=== PATIENT | male | born 1955 | race Caucasian/White ===

== ENCOUNTER 2018-05-26 14:21 | Inpatient (IN) | payer OTHER ==
[~2018-05-26] VITALS: Ht 177.8 cm; Wt 100.9 kg
[2018-05-26 14:29] VITALS: Ht 177.8 cm; Wt 100.9 kg
[2018-05-26 15:06] LABS: BASOPHIL % 0.1 % (0-2); PLATELET COUNT 275 x10^3mcL (130-400)
[2018-05-26 15:07] LABS: RED CELL DISTRIBUTION WIDTH 16.2 % (11.5-14.5)
[2018-05-26 15:32] LABS: ALBUMIN 4.3 g/dL (3.4-5.0); ALKALINE PHOSPHATASE 75 U/L (46-116); ALT/SGPT 25 U/L (16-63); AST/SGOT 31 U/L (15-37); BILIRUBIN TOTAL 0.3 mg/dL (0.20-1.00); CALCIUM 9.3 mg/dL (8.5-10.1); CHLORIDE SERUM 105 mmol/L (98-107); CREATININE SERUM 0.8 mg/dL (0.7-1.3); GFR1 > 60 mL/min; GLUCOSE SERUM 117 mg/dL (74-106); SODIUM SERUM 140 mmol/L (136-145); TOTAL PROTEIN, SERUM 7.9 g/dL (6.4-8.2)
[2018-05-26 15:35] LABS: POTASSIUM SERUM 2.8 mmol/L (3.5-5.1)
[2018-05-26 16:46] LABS: UA SPECIFIC GRAVITY >=1.030 (1.005-1.035); microscopic required? YES; urine erythrocyte TRACE (NEGATIVE)
[2018-05-26] MEDS ORDERED: METOPROLOL SUCC50 M2 (17:14)
[2018-05-26] MEDS ORDERED: HYDROCHLOROTHIA25 MG PO (17:14)
[2018-05-26] MEDS ORDERED: GEMFIBROZIL600 MG PO (17:15)
[2018-05-26] MEDS ORDERED: METFORMIN HYD1000 M2 PO (17:15)
[2018-05-26] MEDS ORDERED: SIMVASTATIN40 M1 PO (17:16)
[2018-05-26] MEDS ORDERED: AMLODIPINE BESY10 M2 PO (17:16)
[2018-05-26] MEDS ORDERED: LISINOPRIL10 MG PO (17:17)
[2018-05-26] MEDS ORDERED: ASPIR 8181 MG PO (17:18)
[2018-05-26 18:47] LABS: AMPHETAMINE QUAL UR POSITIVE (See below)
[2018-05-26 18:57] LABS: CHOLESTEROL/HDL RATIO 3.4; MAGNESIUM 2.1 mg/dL (1.8-2.4); PHOSPHOROUS 3.1 mg/dL (2.5-4.9)
[2018-05-26 19:36] VITALS: BP 152/94
[2018-05-27 05:47] VITALS: BP 142/86
[2018-05-27 07:04] LABS: BASOPHIL % 0.6 % (0-2); PLATELET COUNT 246 x10^3mcL (130-400)
[2018-05-27 07:08] LABS: CALCIUM 8.5 mg/dL (8.5-10.1); CHLORIDE SERUM 105 mmol/L (98-107); CREATININE SERUM 0.7 mg/dL (0.7-1.3); GFR1 > 60 mL/min; GLUCOSE SERUM 102 mg/dL (74-106); PHOSPHOROUS 3.2 mg/dL (2.5-4.9); POTASSIUM SERUM 3.1 mmol/L (3.5-5.1); SODIUM SERUM 139 mmol/L (136-145)
[2018-05-27 08:25] VITALS: BP 137/88
[2018-05-27 08:57] LABS: RED CELL DISTRIBUTION WIDTH 16.1 % (11.5-14.5)
[2018-05-27] MEDS ORDERED: ZES20 PO (11:31)
[2018-05-27] MEDS ORDERED: ULT50 PO (11:33)
[2018-05-27 13:08] VITALS: BP 138/82
[2018-05-27 14:16] VITALS: BP 139/88
[2018-05-27 14:45] VITALS: BP 138/82
[2018-05-27 16:00] VITALS: BP 106/61
== END 2018-05-27 18:33 | disposition home or self-care (01) | DRG 422 ==
LOC: ED 14:21 → DU 17:59
PROVIDERS: Emergency Medicine; ADMIT Internal Medicine
DX: E86.0 Dehydration (principal); N17.9 Acute kidney failure, unspecified; E11.65 Type 2 diabetes mellitus with hyperglycemia; G90.9 Disorder of the autonomic nervous system, unspecified; E87.6 Hypokalemia; I10 Essential (primary) hypertension; F15.188 Other stimulant abuse with other stimulant-induced disorder; E78.5 Hyperlipidemia, unspecified; M06.9 Rheumatoid arthritis, unspecified; F17.211 Nicotine dependence, cigarettes, in remission; F14.11 Cocaine abuse, in remission; Z68.32 Body mass index [BMI] 32.0-32.9, adult; Z79.84 Long term (current) use of oral hypoglycemic drugs; Z79.82 Long term (current) use of aspirin
CPT/HCPCS: 82962; 83880; 90658; G0480; J3480; J7030; Q0092